=== PATIENT | male | born 1995 | race Caucasian/White ===

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

== ENCOUNTER 2017-03-17 21:39 | Emergency (ER) | payer OTHER, MEDICAID ==
--- NOTE | 2017-03-17 23:41 | RADIOLOGY REPORT (SQ) ---
EXAM DESCRIPTION: ANKLE LEFT COMPLETE COMPLETED DATE/TIME: 03/17/2017 11:22 pm REASON FOR STUDY: pain COMPARISON: None. NUMBER OF VIEWS: Three views. TECHNIQUE: AP, lateral, and oblique radiographic images acquired of the left ankle. LIMITATIONS: None. FINDINGS: MINERALIZATION: Normal. BONES: No acute fracture or dislocation. Old healed distal fibular medial metaphyseal fracture. No w orrisome bone lesions. JOINTS: No effusions. SOFT TISSUES: No soft tissue swelling. No foreign body. OTHER: No other significant finding. IMPRESSION: NO RADIOGRAPHIC EVIDENCE OF ACUTE INJURY. Old healed distal fibular medial metaphyseal fracture. TECHNICAL DOCUMENTATION: JOB ID: [id number] [employer]- All Rights Reserved
--- NOTE | 2017-03-18 00:13 | ER Document Report ---
ED General - General Chief Complaint: Depression Stated Complaint: ANKLE PAIN Time Seen by Provider: 03/18/17 00:10 Notes: The patient is a 21-year-old male, past medical history anxiety, depression, presents with several different complaints. He has an old left ankle fracture and is concerned that he reinjured his ankle. He is also concerned about STDs because he recently slept with a new man who he thinks has HIV. He is also having penile discharge. Patient is having increased depression because his was recently deployed and he does not know any body in town. He used to go to [facility], but has not been on his medications for several months. Patient is also having a dull frontal headache for several months. Patient denies suicidal ideation, homicidal ideation, penile lesions, testicular pain, fever, hematuria, difficulty walking, nausea, vomiting, neck stiffness or fevers. TRAVEL OUTSIDE OF THE [place] IN LAST 30 DAYS: No - Related Data Allergies/Adverse Reactions: No Known Allergies Allergy (Unverified 03/17/17 22:31) Past Medical History - General Information source: Patient - Social History Smoking Status: Current Every Day Smoker Frequency of alcohol use: Heavy Family History: Reviewed & Not Pertinent Patient has suicidal ideation: No Patient has homicidal ideation: No Renal/ Medical History: Denies: Hx Peritoneal Dialysis - Immunizations Hx Diphtheria, Pertussis, Tetanus Vaccination: - unknown Review of Systems - Review of Systems Notes: REVIEW OF SYSTEMS: CONSTITUTIONAL: -fevers, -chills EENT: -eye pain, -difficulty swallowing, -nasal congestion CARDIOVASCULAR:-chest pain, -syncope. RESPIRATORY: -cough, -SOB GASTROINTESTINAL: -abdominal pain, - nausea, -vomiting, -diarrhea GENITOURINARY: -dysuria, -hematuria, +penile discharge MUSCULOSKELETAL: -back pain, -neck pain, +left ankle pain SKIN: -rash or skin lesions. HEMATOLOGIC: -easy bruising or bleeding. LYMPHATIC: -swollen, enlarged glands. NEUROLOGICAL: -altered mental status or loss of consciousness, +headache, - neurologic symptoms PSYCHIATRIC: +anxiety, +depression. ALL OTHER SYSTEMS REVIEWED AND NEGATIVE. Physical Exam - Vital signs Vitals: Temp Pulse Resp BP Pulse Ox 98.8 F 105 H 16 155/88 H 99 03/17/17 22:33 03/17/17 22:33 03/17/17 22:33 03/17/17 22:33 03/17/17 22:33 - Notes Notes: PHYSICAL EXAMINATION: GENERAL: Well-appearing, well-nourished and in no acute distress. HEAD: Atraumatic, normocephalic. EYES: Pupils equal round and reactive to light, extraocular movements intact, sclera anicteric, conjunctiva are normal. ENT: nares patent, oropharynx clear without exudates. Moist mucous membranes. NECK: Normal range of motion, supple without lymphadenopathy LUNGS: Breath sounds clear to auscultation bilaterally and equal. No wheezes rales or rhonchi. HEART: Regular rate and rhythm without murmurs ABDOMEN: Soft, nontender, normoactive bowel sounds. No guarding, no rebound. No masses appreciated. EXTREMITIES: Normal range of motion, no pitting or edema. No cyanosis. NEUROLOGICAL: Cranial nerves grossly intact. Normal speech, normal gait. Normal sensory and motor exams. PSYCH: Normal mood, normal affect. SKIN: Warm, Dry, normal turgor, no rashes or lesions noted. Course - Re-evaluation Re-evalutation: Patient appears well and is in no acute distress. His left ankle x-ray any acute fractures. Patient is not suicidal or homicidal. Urine sent for gonorrhea and chlamydia and he is treated today. He is also requesting HIV postexposure prophylaxis, so will begin Truvada and have patient follow-up at the health department for further evaluation and treatment. Also provide him with a referral to [facility] to discuss restarting his anxiety and depression medications. Patient headache is chronic in nature and does not appear to be SAH, ICH or meningitis at this time. - Vital Signs Vital signs: Temp Pulse Resp BP Pulse Ox 98.8 F 67 18 140/72 H 100 03/17/17 22:33 03/18/17 02:08 03/18/17 02:08 03/18/17 02:08 03/18/17 02:08 - Laboratory Laboratory results interpreted by tx: 03/18/17 00:19 N.gonorrhoeae DNA (PCR) DETECTED H Discharge - Discharge Clinical Impression: HIV exposure, Urethritis Depression Qualifiers: Depression Type: unspecified Qualified Code(s): F32.9 - Major depressive disorder, single episode, unspecified Ankle pain, chronic Qualifiers: Laterality: right Qualified Code(s): M25.571 - Pain in right ankle and joints of right foot Condition: Stable Disposition: HOME, SELF-CARE Additional Instructions: You were treated for gonorrhea and chlamydia today. Begin the Truvada to help with your potential HIV exposure and follow-up with the health center for further evaluation and treatment. Always use a condom. Follow-up with cc and see to discuss restarting your depression and anxiety medications. Prescriptions: Emtricitabine/Tenofovir [Truvada Tablet] 1 each PO DAILY #30 tablet Forms: Elevated Blood Pressure [facility] - Follow up as needed [facility] [Outside] - Follow up as needed
[2017-03-18] MEDS ORDERED: AZITHROMYCIN 1 GM SUSP PACKET PO ONE (01:10)
[2017-03-18] MEDS ORDERED: LIDOCAINE 1% INJ-PF (10 MG/ML) 30 ML SDV INJ ONE (01:10)
[2017-03-18] MEDS ORDERED: CEFTRIAXONE INJ 250 MG VIAL IM ONE (01:10)
[2017-03-18 02:08] VITALS: BP 140/72
[2017-03-18 02:33] LABS: CHLAM PCR NOT DETECTED (NOT DETECT)
== END 2017-03-18 02:08 | disposition home or self-care (01) ==
LOC: ER 21:39
DX: N34.2 Other urethritis (principal); F32.9 Major depressive disorder, single episode, unspecified; M25.571 Pain in right ankle and joints of right foot; M25.579 Pain in unspecified ankle and joints of unspecified foot; F41.9 Anxiety disorder, unspecified; Z20.6 Contact with and (suspected) exposure to human immunodeficiency virus [HIV]; F17.200 Nicotine dependence, unspecified, uncomplicated
CPT/HCPCS: 99284; 96372; 87491; 87591; 73610; J3490; Q0144; J0696